=== PATIENT | male | born 1950 | race Caucasian/White ===

== ENCOUNTER 2016-10-31 13:10 | Day surgery (SDC) | payer OTHER ==
[~2016-10-31 13:10] MED LIST: NS 500 ML IV 500 ML IV ONE; TETRACAINE 0.5% OPHTH 1 DOSE AFFEYE ONE; VIGAMOX 0.5% OPHTH 1 DOSE AFFEYE ONE
[2016-10-31] MEDS ORDERED: VIGAMOX 0.5% OPHTH 1 DOSE AFFEYE ONE ×3 (13:11→16:00)
[2016-10-31] MEDS ORDERED: PROLENSA OPHTH 1 DOSE AFFEYE ONE (13:12)
[2016-10-31] MEDS ORDERED: ALPHAGAN-P OPHTH 1 DOSE AFFEYE ONE (13:13)
[2016-10-31] MEDS ORDERED: CYCLOGYL 1% OPHTH 1 DOSE OP ONE ×5 (13:14→13:18)
[2016-10-31] MEDS ORDERED: AK-DILATE 2.5% OPHTH 1 DOSE OP ONE ×5 (13:14→13:18)
[2016-10-31] MEDS ORDERED: MYDRIACIL OPHTH 1 DOSE AFFEYE ONE ×5 (13:14→13:18)
[2016-10-31] MEDS ORDERED: TETRACAINE 0.5% OPHTH 1 DOSE AFFEYE ONE ×7 (14:52→16:00)
[2016-10-31] MEDS ORDERED: AK-DILATE 10% OPHTH 1 DOSE AFFEYE ONE ×2 (14:52→15:42)
[2016-10-31] MEDS: VERSED ONE ×2 (14:52→15:41)
[2016-10-31] MEDS ORDERED: BETADINE OPHTH SOLN 5% EACHEYE ONE (15:47)
[2016-10-31] MEDS ORDERED: ADRENALINE CHL INJ IJ ONE ×2 (15:57→16:00)
[2016-10-31] MEDS ORDERED: XYLOCAINE-MPF 1% IJ ONE ×2 (15:57→16:00)
[2016-10-31] MEDS ORDERED: DUOVISC IO ONE ×2 (15:58→16:00)
[2016-10-31] MEDS ORDERED: BSS OPHTH (PLAIN) 500 ML with VANCOMYCIN HCL 500 MG VIAL 25 MG, ADRENALINE CHL INJ 1 MG IR ONE ×3 (16:00)
[2016-10-31 16:50] VITALS: BP 187/90
== END 2016-10-31 16:35 | disposition home or self-care (01) ==
LOC: SURG1 13:10
PROVIDERS: ATTEND Ophthalmology
PROC: 08RJ3JZ Replacement of Right Lens with Synthetic Substitute, Percutaneous Approach (ICD-10-PCS; principal; 2016-10-31 18:45)
PROC: 08DJ3ZZ Extraction of Right Lens, Percutaneous Approach (ICD-10-PCS; principal; 2016-10-31 18:45)
DX: H25.11 Age-related nuclear cataract, right eye (principal); H25.011 Cortical age-related cataract, right eye; H52.221 Regular astigmatism, right eye
CPT/HCPCS: A9270; A4217; J0170; J2250; J3370